=== PATIENT | male | born 1970 | race Caucasian/White ===

== ENCOUNTER 2019-06-23 20:35 | Emergency (ER) | payer SELFPAY ==
[~2019-06-23] VITALS: Ht 185.4 cm; Wt 210.0 kg
[2019-06-23 20:35] VITALS: BP 124/77
[2019-06-23] MEDS ORDERED: IBUP-1022 PO (20:41)
[2019-06-23] MEDS ORDERED: LISI20TA19 PO (20:41)
[2019-06-23] MEDS ORDERED: FLOM0.4C39 PO (20:41)
[2019-06-23] MEDS ORDERED: OXYB15TA PO (20:41)
[2019-06-23] MEDS ORDERED: BACITRACIN OINT 30GM TOP STA (21:57)
[2019-06-23] MEDS ORDERED: BACTRIM 160MG/800MG DS TAB PO ONE (22:00)
[2019-06-23] MEDS ORDERED: BACT800T5 PO (22:06)
[2019-06-23] MEDS ORDERED: NAPR-837 PO (22:06)
[2019-06-23] MEDS ORDERED: NEOSPORIN OINT 0.9 GM PKT (FLOOR STOCK) As Ordered ONE (22:06)
[2019-06-23] MEDS ORDERED: NEOSPORIN OINT 0.9 GM PKT (FLOOR STOCK) TOP ONE (22:15)
== END 2019-06-23 22:24 | disposition home or self-care (01) ==
LOC: M ED 20:35
DX: S50.311A Abrasion of right elbow, initial encounter (principal); S50.312A Abrasion of left elbow, initial encounter; S80.211A Abrasion, right knee, initial encounter; S80.212A Abrasion, left knee, initial encounter; A49.02 Methicillin resistant Staphylococcus aureus infection, unspecified site; X58.XXXA Exposure to other specified factors, initial encounter; Y92.9 Unspecified place or not applicable; Y93.9 Activity, unspecified; Y99.9 Unspecified external cause status; I10 Essential (primary) hypertension; Z72.0 Tobacco use; Z79.899 Other long term (current) drug therapy